=== PATIENT | male | born 1935 | race African-American/Black ===

== ENCOUNTER 2020-05-25 18:00 | Emergency (ER) | payer OTHER ==
[~2020-05-25] VITALS: Ht 177.8 cm; Wt 76.0 kg
[2020-05-25] MEDS ORDERED: ONDANSETRON HCL 4MG/2ML INJ IV STA (18:29)
[2020-05-25] MEDS ORDERED: SODIUM CHLORIDE 0.9% 1,000 ML IV ONE (18:30)
[2020-05-25 19:08] LABS: HEMATOCRIT. 35.6 % (42.0-52.0); HEMOGLOBIN. 11.3 g/dL (14.0-18.0); MEAN CORPUSCULAR HEMOGLOBIN 24.6 pg (28.0-32.0); MEAN CORPUSCULAR VOLUME 77.4 fL (80.0-94.0); MEAN PLATELET VOLUME 8.4 fl (7.4-10.4); PLATELET 200 x1000/uL (130-400); RED CELL DISTRIBUTION WIDTH 15.8 % (11.6-14.6)
[2020-05-25 19:13] LABS: CHLORIDE 99 mEq/L (98-107)
[2020-05-25 19:40] LABS: PLATELET ESTIMATE NORMAL
[2020-05-25 23:10] VITALS: BP 137/82
== END 2020-05-25 23:12 | disposition home or self-care (01) ==
LOC: ER 18:00
DX: K85.90 Acute pancreatitis without necrosis or infection, unspecified (principal); R11.2 Nausea with vomiting, unspecified; N28.9 Disorder of kidney and ureter, unspecified; D64.9 Anemia, unspecified; I10 Essential (primary) hypertension
CPT/HCPCS: 36415; 74176; 80053; 83690; 85025; 93005; 96361; 96374; 99285; J2405; J7030